=== PATIENT | male | born 1955 | race Caucasian/White ===

== ENCOUNTER 2016-05-12 11:05 | Day surgery (SDC) | payer OTHER ==
--- OUTSIDE RECORDS SUMMARY | 2016-05-12 11:08 | XMS REPORT | Summary of Care ---
:1955 Author Organization [facility] Address [address] [place] [phone] Care Team Providers Name Role Phone Justo Ramirez Primary Care Physician Encounter Date(s): 04/14/16 - 04/14/[address] [id number] Discharge Disposition: 01 Discharged to Home or Self Care Attending Physician: Tyler Richey MD Admitting Physician: Tyler Richey MD Vital Signs No data available for this section Problem List Condition Effective Dates Status Health Status Informant Diabetes(Confirmed) Active Nephrolithiasis(Confirmed) Active Allergies, Adverse Reactions, Alerts Substance Reaction Severity Status Keflex Diarrhea Active Medications citric acid-potassium citrate 30 mEq oral powder for reconstitution 1 packet, Oral, Daily, # 30 packet(s), 11 Refill(s), Start Date: 04/14/16 10:10: 00 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, Pharmacy: [id number] Start Date: 04/14/16 Status: Orderedhydrochlorothiazide 25 mg oral tablet 1 tab(s), Oral, Daily, # 30 tab(s), 11 Refill(s), Start Date: 10/27/15 9:43:58 CDT, Pharmacy: [id number] Start Date: 10/27/15 Status: Orderedhydrochlorothiazide 25 mg oral tablet 1 tab(s), Oral, Daily, # 30 tab(s), 11 Refill(s), Start Date: 10/23/14 10:25:00 CDT, Pharmacy: [facility] Start Date: 10/23/14 Stop Date: 10/27/15 Status: CompletedmetFORMIN 500 mg oral tablet 1 tab(s), Oral, BID, # 60 tab(s), 0 Refill(s), Start Date: 10/23/14 9:57:00 CDT Start Date: 10/23/14 Stop Date: 04/14/16 Status: CompletedmetFORMIN 850 mg oral tablet 1 tab(s), Oral, BID, # 60 tab(s), 0 Refill(s), Start Date: 04/14/16 9:45:00 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 Start Date: 04/14/16 Status: OrderedNorco 5 mg-325 mg oral tablet 1 tab(s), Oral, q4hr, PRN for pain, X 3 days, # 18 tab(s), 0 Refill(s), Start Date: 03/17/16 13:27:00 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, Pharmacy: [id number] Start Date: 03/17/16 Stop Date: 03/20/16 Status: Completed Results Patient Viewable Results Most recent to oldest [Reference Range]: 1 UA Color Yellow *NA* (04/14/16 1:44 PM) Urine Clarity Clear *NA* (04/14/16 1:44 PM) Specific [place] [1.000-1.060] 1.018 (04/14/16 1:44 PM) Urine pH [5-8] 6 (04/14/16 1:44 PM) Ketones Negative (04/14/16 1:44 PM) Bilirubin [Negative] Negative (04/14/16 1:44 PM) Urine Protein [Negative] Negative (04/14/16 1:44 PM) Glucose [Negative] Negative (04/14/16 1:44 PM) Urine HGB [Negative] 1+ *ABN* (04/14/16 1:44 PM) Urobilinogen <2.0 *NA* (04/14/16 1:44 PM) Nitrite [Negative] Negative (04/14/16 1:44 PM) Leuk Esterase [Negative] Negative (04/14/16 1:44 PM) UA Ascorbic Acid [Negative] Negative (04/14/16 1:44 PM) Urine WBC [0-5] 0-5 (04/14/16 1:44 PM) Urine RBC [0-2] 0-2 (04/14/16 1:44 PM) Squamous Epi [0-5] None Seen (04/14/16 1:44 PM) Mucus Trace (1/20/17 1:44 PM) Immunizations No data available for this section Procedures Procedure Date Related Diagnosis Body Site Cystoscopy1 09/11/14 Ureteroscopy2 09/04/14 1stent [id number] lithotrispy Social History No data available for this section Assessment and Plan No data available for this section
--- OUTSIDE RECORDS SUMMARY | 2016-05-12 11:08 | XMS REPORT | Continuity of Care Document ---
:1955 Author Organization [facility] ([facility]) Address [address] [place] [address] Phone [phone] Care Team Providers Name Role Phone Justo Ramirez Primary Care Provider [phone] Source Comments This disclosure is being made pursuant to the Care Everywhere program, applicable federal and state laws, and may not contain all informaitonavailable regarding this patient.[facility] ([facility]) Active Allergies and Adverse Reactions Allergen Noted Date Severity Reactions Comments Cephalexin 03/29/2016 Diarrhea Current Medications Prescription Sig. Disp. Refills Start Date End Date Status hydroCHLOROthiazide 25 mg Take 25 mg by Active tablet mouth daily. metFORMIN 850 mg tablet Take 850 mg Active by mouth 2 times daily with meals. aspirin 81 mg EC tablet Take 1 tablet 30 tablet 11 03/29/2016 Active (81 mg total) by mouth daily. 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 Pulse 64 03/29/2016 10:54 AM ELECTRICAL PROSPECTING OPERATOR Temperature - - Respiratory Rate - - Height 1.651 m (5' 5") 03/29/2016 10:54 AM ELECTRICAL PROSPECTING OPERATOR Weight 69.4 kg (153 lb) 03/29/2016 10:54 AM ELECTRICAL PROSPECTING OPERATOR Body Mass Index 25.46 03/29/2016 10:54 AM ELECTRICAL PROSPECTING OPERATOR Oxygen Saturation - - Plan of Care Date Type Specialty Providers Description 07/19/2016 Appointment [facility], Chief Comp: Patient MD Reported Reason For [address] [place] [address] [phone] (Fax) Health Maintenance Due Date Last Done Comments HCV Screening 1955 Hepatitis B Vaccine (1 of 3 - Primary Series) 1955 Tdap Vaccine 1968 Lipid Disorder Screening 10/05/1975 MMR Vaccine 10/05/1975 Td Vaccine 10/05/1975 Colonoscopy 2007 Prostate Cancer Screening 10/05/2007 Influenza Vaccine: Seasonal (#1) 10/25/2015 Results from Last 3 Months Not on file
--- OUTSIDE RECORDS SUMMARY | 2016-05-12 11:09 | XMS REPORT | Summary of Care ---
:1955 Author Organization [facility] Address [address] [place] [address] Care Team Providers Name Role Phone Justo Ramirez Primary Care Physician Encounter Date(s): 04/14/16 - [facility]/[address] [facility] [address] [place], [place] [address] Discharge Diagnosis: Recurrent nephrolithiasis Discharge Disposition: Discharged to Home or Self Care Attending Physician: Tyler Richey MD Referring Physician: Tyler Richey MD Vital Signs Most recent to oldest [Reference Range]: 1 Temperature Temporal Artery [36.0-38.0 DegC] 36.9 DegC (04/14/16 9:43 AM) Blood Pressure [90-130/60-90 mmHg] 118/72mmHg (04/14/16 9:43 AM) Mean Arterial Pressure, Cuff 87 mmHg (04/14/16 9:43 AM) Weight Dosing 71.3 kg (04/14/16 9:43 AM) Weight Measured 71.3 kg (04/14/16 9:43 AM) Problem List Condition Effective Dates Status Health Status Informant Diabetes(Confirmed) Active Nephrolithiasis(Confirmed) Active Allergies, Adverse Reactions, Alerts Substance Reaction Severity Status Keflex Diarrhea Active Medications citric acid-potassium citrate 30 mEq oral powder for reconstitution 1 packet, Oral, Daily, # 30 packet(s), 11 Refill(s), Start Date: 04/14/16 10:10: 00 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, Pharmacy: [id number] Start Date: 04/14/16 Status: Orderedhydrochlorothiazide 25 mg oral tablet 1 tab(s), Oral, Daily, # 30 tab(s), 11 Refill(s), Start Date: 10/27/15 9:43:58 CDT, Pharmacy: [id number] Start Date: 10/27/15 Status: Orderedhydrochlorothiazide 25 mg oral tablet 1 tab(s), Oral, Daily, # 30 tab(s), 11 Refill(s), Start Date: 10/23/14 10:25:00 CDT, [id number] Start Date: 10/23/14 Stop Date: 10/27/15 Status: CompletedmetFORMIN 500 mg oral tablet 1 tab(s), Oral, BID, # 60 tab(s), 0 Refill(s), Start Date: 10/23/14 9:57:00 CDT Start Date: 10/23/14 Stop Date: 04/14/16 Status: CompletedmetFORMIN 850 mg oral tablet 1 tab(s), Oral, BID, # 60 tab(s), 0 Refill(s), Start Date: 04/14/16 9:45:00 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 Start Date: 04/14/16 Status: OrderedNorco 5 mg-325 mg oral tablet 1 tab(s), Oral, q4hr, PRN for pain, X 3 days, # 18 tab(s), 0 Refill(s), Start Date: 03/17/16 13:27:00 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, Pharmacy: [id number] Start Date: 03/17/16 Stop Date: 03/20/16 Status: Completed Results Patient Viewable Results Most recent to oldest [Reference Range]: 1 Urine Appearance Urine Dipstick Clear (04/14/16 1:46 PM) Urine Color Urine Dipstick Yellow (04/14/16 1:46 PM) Specific [place] Urine Dipstick 1.010 (04/14/16 1:46 PM) Bilirubin Urine Dipstick Negative (04/14/16 1:46 PM) pH Urine Dipstick 6.5 (04/14/16 1:46 PM) Urobilinogen Urine Dipstick 0.2 mg/dl (04/14/16 1:46 PM) Blood Urine Dipstick Small (04/14/16 1:46 PM) Glucose Urine Dipstick Negative (04/14/16 1:46 PM) Ketones Urine Dipstick Negative (04/14/16 1:46 PM) Protein Urine Dipstick Negative (04/14/16 1:46 PM) Nitrite Urine Dipstick Negative (04/14/16 1:46 PM) Leukocytes Urine Dipstick Negative (04/14/16 1:46 PM) Immunizations No data available for this section Procedures Procedure Date Related Diagnosis Body Site Cystoscopy1 09/11/14 Ureteroscopy2 09/04/14 1stent [id number] lithotrispy Social History No data available for this section Assessment and Plan No data available for this section
[2016-05-12] MEDS ORDERED: RINGERS SOLUTION,LACTATED 1,000 ML IV ONE (11:55)
[2016-05-12 14:39] VITALS: BP 139/83
== END 2016-05-12 11:06 | disposition home or self-care (01) ==
LOC: AMB 11:05
PROVIDERS: ATTEND Urology
PROC: 0TF3XZZ Fragmentation in Right Kidney Pelvis, External Approach (ICD-10-PCS; principal; 2016-05-12 12:00)
DX: N20.0 Calculus of kidney (principal); E11.9 Type 2 diabetes mellitus without complications; Z87.442 Personal history of urinary calculi; Z68.26 Body mass index [BMI] 26.0-26.9, adult

== ENCOUNTER 2016-06-16 10:52 | Day surgery (SDC) | payer OTHER ==
[~2016-06-16 10:52] MED LIST: RINGERS SOLUTION,LACTATED 1,000 ML IV PRN
--- OUTSIDE RECORDS SUMMARY | 2016-06-16 10:56 | XMS REPORT | Continuity of Care Document ---
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 Pulse 64 03/29/2016 10:54 AM MOTOR COACH TOUR OPERATOR Temperature - - Respiratory Rate - - Height 1.651 m (5' 5") 03/29/2016 10:54 AM MOTOR COACH TOUR OPERATOR Weight 69.4 kg (153 lb) 03/29/2016 10:54 AM MOTOR COACH TOUR OPERATOR Body Mass Index 25.46 03/29/2016 10:54 AM MOTOR COACH TOUR OPERATOR Oxygen Saturation - - Plan of Care Date Type Specialty Providers Description 07/19/2016 Appointment [facility], Chief Comp: Patient MD Reported Reason For [address] [place] [address] [phone] (Fax) Health Maintenance Due Date Last Done Comments HCV Screening 1955 Hepatitis B Vaccine (1 of 3 - Primary Series) 1955 Tdap Vaccine 1968 Lipid Disorder Screening 10/05/1975 MMR Vaccine 10/05/1975 Td Vaccine 10/05/1975 Colonoscopy 2007 Prostate Cancer Screening 10/05/2007 Influenza Vaccine: Seasonal (#1) 10/25/2015 Results from Last 3 Months Not on file
[2016-06-16] MEDS ORDERED: RINGERS SOLUTION,LACTATED 1,000 ML IV ONE ×2 (11:18→13:45)
[2016-06-16 15:43] VITALS: BP 129/75
== END 2016-06-16 10:53 | disposition home or self-care (01) ==
LOC: AMB 10:52
PROVIDERS: ATTEND Urology
PROC: 0TF4XZZ Fragmentation in Left Kidney Pelvis, External Approach (ICD-10-PCS; principal; 2016-06-16 12:00)
DX: N20.0 Calculus of kidney (principal); E11.9 Type 2 diabetes mellitus without complications; Z68.25 Body mass index [BMI] 25.0-25.9, adult